=== PATIENT | male | born 1970 ===

== ENCOUNTER 2017-10-10 08:00 | Emergency (ER) | payer BC ==
[2017-10-10 08:29] VITALS: BP 120/86
--- NOTE | 2017-10-10 09:02 | UC ---
Knee Pain HPI - HPI Summary HPI Summary: hit left knee while skiing two weeks ago - very swollen, painful, tender to touch. hurts with walking and rubbing knees together taking ibuprofen otc with some relief but still swollen and tender to touch. walks everyday on it - still working - wears knee brace at times without relief. - History of Current Complaint Chief Complaint: UCTrauma Stated Complaint: LEFT KNEE PAIN Time Seen by Provider: 10/10/17 08:49 Hx Obtained From: Patient Onset/Duration: Lasting Weeks Severity Initially: Moderate Severity Currently: Moderate Pain Intensity: 4 - Risk Factors Septic Arthritis Risk Factor: Negative - Allergies/Home Medications Allergies/Adverse Reactions: Allergies Allergy/AdvReac Type Severity Reaction Status Date / Time No Known Allergies Allergy Verified 03/12/14 17:35 PMH/Surg Hx/FS Hx/Imm Hx Previously Healthy: Yes - Surgical History Surgical History: None - Social History Alcohol Use: Occasionally Substance Use Type: None Smoking Status (MU): Former Smoker Review of Systems Constitutional: Negative Skin: Negative Eyes: Negative ENT: Negative Respiratory: Negative Cardiovascular: Negative Gastrointestinal: Negative Genitourinary: Negative Motor: Decreased ROM - left leg Musculoskeletal: Myalgia - left knee with hematoma/swelling present on inner part of knee Is Patient Immunocompromised?: No All Other Systems Reviewed And Are Negative: Yes Physical Exam Triage Information Reviewed: Yes Appearance: Pain Distress - with movement of left knee Vital Signs: Initial Vital Signs Temp 97.4 F 10/10/17 08:25 Pulse 62 10/10/17 08:25 Resp 18 10/10/17 08:25 BP 120/86 10/10/17 08:25 Pulse Ox 100 10/10/17 08:25 Vital Signs Reviewed: Yes Eye Exam: Normal ENT Exam: Normal Respiratory Exam: Normal Cardiovascular Exam: Normal Musculoskeletal: Positive: Strength Limited @ - left LE Neurological Exam: Normal Psychological Exam: Normal Skin Exam: Normal Knee Pain Course/Dx - Course Course Of Treatment: RICE as directed. ibuprofen / tylenol po every 4-6 prn pain. no xray - declined won't show muscle tear - already know it swollen. referral to ortho. f/u pcp as needed - Differential Dx/Diagnosis Differential Diagnosis/HQI/PQRI: Sprain, Strain Provider Diagnoses: knee sprain/injury Discharge - Discharge Plan Condition: Good Disposition: HOME Patient Education Materials: Knee Sprain (ED) Referrals: Jose Ramon Rosales MD [Primary Care Provider] - 1 Week Todd Enriquez MD [Medical Doctor] - As Soon As Possible
== END 2017-10-10 09:12 | disposition home or self-care (01) ==
LOC: UCCORT 08:00
DX: S83.92XA Sprain of unspecified site of left knee, initial encounter (principal); S89.92XA Unspecified injury of left lower leg, initial encounter; W22.8XXA Striking against or struck by other objects, initial encounter; Y93.23 Activity, snow (alpine) (downhill) skiing, snowboarding, sledding, tobogganing and snow tubing; Y92.9 Unspecified place or not applicable; Z87.891 Personal history of nicotine dependence
CPT/HCPCS: 99201; G0463